=== PATIENT | male | born 1985 | race Caucasian/White ===

== ENCOUNTER 2020-06-13 16:48 | Outpatient (REF) | payer BC, SELFPAY ==
[2020-06-13 17:06] LABS: MANUAL DIFF FLAG NO
[2020-06-13 17:09] LABS: Basophils Absolute Auto 0.1 X10*3/uL (0.0-0.2); Basophils Percent Auto 0.6 % (0-2); Eosinophils Absolute Auto 0.2 X10*3/uL (0.0-0.4); Hematocrit 47.3 % (42-52); Hemoglobin 16.1 g/dl (14.0-18.0); Imm Gran Abs Auto 0.02 X10*3/uL (0.00-0.03); Imm Gran Pct Auto 0.2 % (0.0-0.4); Lymphocytes Absolute Auto 1.6 X10*3/uL (1.2-4.9); Lymphocytes Percent Auto 17.7 % (20-40); Mean Corpuscular Hemoglobin 29.5 pg (27.0-33.0); Mean Corpuscular Volume 86.8 fL (80-98); Mean Platelet Volume 9.2 fL (9.4-12.4); Monocytes Absolute Auto 0.9 X10*3/uL (0.1-1.2); Monocytes Percent Auto 9.7 % (2-11); Neutrophils Absolute Auto 6.2 X10*3/uL (2.0-8.3); Neutrophils Percent Auto 69.8 % (45-73); Platelet Count 341 X10*3/uL (160-400); Red Blood Count 5.45 X10*6/uL (4.60-5.80); Red Cell Distribution Width 11.6 % (11.0-16.0); White Blood Count 8.9 X10*3/uL (4.8-10.8)
[2020-06-13 17:29] LABS: Glucose Urine UA NEG (NEG); Leukocyte Esterase Urine NEG (NEG); Nitrite Urine NEG (NEG); Specific Gravity - Urine >= 1.030 (1.005-1.025); Urine Blood NEG (NEG); Urine Ketones NEG (NEG); Urine Protein NEG (NEG-TRACE)
[2020-06-13 17:30] LABS: Appearance Urine CLEAR; Color Urine YELLOW
[2020-06-13 17:32] LABS: Alanine Aminotransferase 65 U/L (0-40); Albumin Level 4.6 g/dL (3.5-5.0); Alkaline Phosphatase 97 U/L (39-117); Anion Gap 13 (12-20); Aspartate Amino Transferase 35 U/L (5-37); Bilirubin Total 0.5 mg/dL (0.0-1.0); Blood Urea Nitrogen 25 mg/dL (9-16); Calcium 9.7 mg/dL (8.4-10.2); Carbon Dioxide 30 mmol/L (22-29); Chloride 98 mmol/L (96-108); Estimated Glomerular Filt Rate > 60; Glucose Fasting 97 mg/dL (60-99); Potassium 5.1 mmol/l (3.3-5.1); Sodium 136 mmol/L (135-145); Total Protein 7.9 g/dL (6.5-8.0)
[2020-06-13 17:53] LABS: TSH reflex Free T4 1.71 mIU/mL (0.32-4.0)
== END 2020-06-13 16:49 | disposition home or self-care (01) ==
LOC: HO.LAB 16:48
PROVIDERS: PCP Internal Medicine; Visit Provider Internal Medicine
DX: R79.89 Other specified abnormal findings of blood chemistry (principal); I10 Essential (primary) hypertension
CPT/HCPCS: 36415; 80053; 81003; 84443; 85025

== ENCOUNTER 2023-03-03 14:21 | Outpatient (AMB) | payer OTHER, SELFPAY ==
[2023-03-03 14:36] VITALS: BP 134/88; PULSE 86; O2SAT 97; BMI 29.2
--- NOTE | 2023-03-03 14:36 | MHC.PC.OV ---
Vital Signs 03/03/23 14:36 Height 5 ft 11 in Weight 209 lb 8 oz BMI 29.2 BP 134/88 Blood Pressure Location Lt brachial Position Sitting Pulse 86 Pulse Source Pulse Oximeter Pulse Oximetry (%) 97 Oxygen Delivery Method Room Air Intake Visit Reasons: med follow up Direct Mail Marketer Required: No Accompanied by: Self / Same As Patient Allergies No Known Allergies Allergy (Verified 03/03/23 15:06) Medication List - Last Reconciled 03/03/23 by Karthik Trejo MD amlodipine 5 mg PO DAILY 90 days fluoxetine 60 mg (3 x 20 mg) PO DAILY 90 days methylphenidate HCl 50 mg PO DAILY 30 days methylphenidate HCl ER (Concerta) 54 mg PO QAM 30 days Tobacco use date assessed: 03/03/23 Dental Screening Dental Screen Date: 03/03/23 Did you have a dental visit in the last 12 months?: Yes Did you have a dental problem in the last 6 months where you did not have access to dental care?: No Was dental information given to patient?: Patient has dentist HPI med follow up HPI Details Patient comes in today for his follow up visit States that he currently feels okay although he has noticed on and off shaking of his hands often for the past 6 months or so Notes that the shaking in both of his hands seem worse and more pronounced towards the end of the day after work Has not noticed any shaking in the morning He denies any weakness or pain in his upper extremities lately He denies any headaches or dizziness Denies any chest pains, no shortness of breath No nausea / vomiting, no abdominal pain No change in bowel habits noted He has lost a lot a weight since his last visit here about a year ago States that he eats well and he does not work out or exercise regularly and thinks that his losing weight may be due to him staying busy at work although he has been trying to change his diet and eating habits lately and trying to eat healthier [facility] Medical History Overweight (BMI 25.0-29.9) Elevated LFTs Obesity (BMI 30-39.9) Mild obstructive sleep apnea Depression Attention deficit disorder (ADD) Benign essential hypertension Surgical History No significant past surgical history Family History Father Diabetes mellitus Hypertension Social History Housing: House Alcohol intake: current Alcohol intake frequency: a few times a week Alcohol type: beer Patient Tobacco Use Status: Never used Tobacco Second Hand Smoke Exposure: No service: No Current occupational status: employed Cognitive needs: No Hearing needs: No Vision needs: No Questionnaire PHQ-9 Over the last 2 weeks, how often have you been bothered by any of the following problems? 1. Little interest or pleasure in doing things: not at all 2. Feeling down, depressed, or hopeless: not at all 3. Trouble falling or staying asleep, or sleeping too much: not at all 4. Feeling tired or having little energy: not at all 5. Poor appetite or overeating: not at all 6. Feeling bad about yourself - or that you are a failure or have let yourself or your family down: not at all 7. Trouble concentrating on things, such as reading the newspaper or watching television: not at all 8. Moving or speaking so slowly that other people could have noticed. Or the opposite - being so fidgety or restless that you have been moving around a lot more than usual: not at all 9. Thoughts that you would be better off or of hurting yourself in some way: not at all Total score: 0 Depression Screening Interpretation: Negative Depression Screening Done: Yes 13035 - PHQ-9 Billing: Yes Source: Developed by Drs. David Eid, Angelique Albert, Ham Myles and colleagues, with an educational wagner from [employer]. Thrive Questionnaire Date Thrive assessed: 03/03/23 I am a: Patient What is your living situation today?: I have a steady place to live Within the past 12 months, did the food you bought not last and you didn't have the money to get more?: Never true Within the past 12 months, did you worry whether your food would run out before you got money to buy more?: Never true Do you have trouble paying for medicines?: No Do you have trouble getting transportation to medical appointments?: No Do you have trouble paying your heating and electricity bill?: No Do you have trouble taking care of your child, family member or friend?: No Do you have trouble with day-to-day activities such as bathing, preparing meals, shopping, managing finances, etc.?: No Are you currently unemployed and looking for a job?: No Are you interested in more education?: No Please select the resources that you would like help with: None Currently or been in a relationship where the following occur: no concerns reported AUDIT C Alcohol Use Questionnaire (AUDIT-C) 1. How often do you have a drink containing alcohol?: 2-3 times a week 2. How many drinks containing alcohol do you have on a typical day when you are drinking?: 1 or 2 3. How often do you have six or more drinks on one occasion?: Never Total Score: 3 Score Reviewed/Action Taken: Yes MICHEL-7 AMB Questionnaire MICHEL-7 Date MICHEL - 7 assessed: 03/03/23 Feeling nervous, anxious, or on edge: 0 = Not at all Not being able to stop or control worryin = Not at all Worrying too much about different things: 0 = Not at all Trouble relaxin = Not at all Being so restless that it is hard to sit still: 0 = Not at all Becoming easily annoyed or irritable: 0 = Not at all Feeling afraid as if something awful might happen: 0 = Not at all Total MICHEL-7 score (0-4 normal; 5-9 mild; 10-14 moderate; 15-21 severe): 0 Source: Developed by Drs. David Eid, Angelique Albert, Ham Myles and colleagues, with an educational wagner from [employer]. Review of Systems Const Denies chills, Denies fatigue, Denies fever(s) and Denies headache(s) ENT Denies dysphagia, Denies dizziness, Denies otalgia, Denies headache(s), Denies neck pain, Denies odynophagia and Denies sore throat Card Denies chest pain, Denies palpitations and Denies dyspnea Resp Denies cough and Denies dyspnea GI Denies abdominal pain, Denies constipation, Denies dysphagia, Denies heartburn, Denies diarrhea, Denies nausea, Denies odynophagia and Denies vomiting Denies dysuria and Denies nocturia Musc Denies back pain, Denies arthralgias, Denies neck pain and Denies stiffness Skin/Breast Denies rash Neuro Denies dizziness, Denies headache(s) and Reports tremor(s) (in both hands lately - see HPI) Endo Denies fatigue and Denies palpitations Physical exam (Primary Care) Vital Signs: Last Vital Signs Pulse 86 03/03/23 14:36 BP 134/88 03/03/23 14:36 Pulse Ox 97 03/03/23 14:36 Oxygen Delivery Method Room Air 03/03/23 14:36 BMI result Body Mass Index 29.2 Tobacco/Smoking Status: Tobacco use Status Tobacco use date assessed 03/03/23 03/03/23 14:42 Patient Tobacco Use Status Never used Tobacco 03/03/23 14:42 PHQ-9: PHQ-9 Score PHQ-9: Total score 0 03/04/23 05:50 Depression Screening Interpretation: Negative Thrive Assessment: Date of Thrive Assessment Date Thrive assessed 03/03/23 03/03/23 14:42 Currently or been in a relationship where the following occur: no concerns reported Const General: no acute distress and alert Orientation/consciousness: patient oriented x3 HENMT Ears: TM's normal bilaterally and EAC's normal Throat: Yes posterior oropharynx normal and Yes tonsils normal (no TP congestion) Neck Neck: Yes no lymphadenopathy and Yes supple Resp Auscultation: clear to auscultation bilaterally, no rales and no wheezes Cardio Rate: regular rate Rhythm: regular rhythm Heart sounds: no murmurs GI Palpation (GI): Soft to palpation, nontender and No hepatosplenomegaly present Skin General skin exam: no rashes or lesions noted Neuro Other: (+) slight tremor noted in both hands General: patient oriented x3 Gait exam (Neuro): Normal gait present Extrem General: Yes no clubbing, cyanosis or edema Assessment and Plan Assessment & Plan (1) Benign essential hypertension: Code(s): I10 - Essential (primary) hypertension Plan: Reinforced low sodium diet - goal is systolic BP of 120 mm or less Continue Amlodipine 5 mg QD Patient is reminded to continue monitoring his blood pressure regularly (2) Tremor of both hands: Code(s): R25.1 - Tremor, unspecified Plan: Will send him for some labs BEENA for further evaluation Advised that if his labs come back normal and he continues to experience recurrent tremors of his hands, will consider referring him to neurology for further evaluation and management (3) Attention deficit disorder (ADD): Code(s): F98.8 - Other specified behavioral and emotional disorders with onset usually occurring in childhood and adolescence Qualifiers: Hyperactivity presence: unspecified Qualified Code(s): F98.8 - Other specified behavioral and emotional disorders with onset usually occurring in childhood and adolescence Plan: Has been on Methylphenidate 50 mg QD for years but he was switched over to Concerta 54 mg QD as an alternative last year when his original Rx was [id number] States that he has been doing well on Concerta so far without any issues He is reminded that he can skip taking his ADD medication on the weekend when he does not have to go to work (4) Depression: Code(s): F32.9 - Major depressive disorder, single episode, unspecified Qualifiers: Depression Type: unspecified Qualified Code(s): F32.9 - Major depressive disorder, single episode, unspecified Plan: Continue Fluoxetine 60 mg QD (5) Overweight (BMI 25.0-29.9): Code(s): E66.3 - Overweight Plan: Reinforced diet/exercise as tolerated/lose weight Plan Follow up in 4 months Orders: Orders TSH reflex Free T4 03/03/23 E78.00 - Pure hypercholesterolemia, unspecified Vitamin D 25-OH Total 03/03/23 E55.9 - Vitamin D deficiency, unspecified Complete Blood Count Auto Diff 03/03/23 I10 - Essential (primary) hypertension Comprehensive [place]. Panel Fast 03/03/23 E78.00 - Pure hypercholesterolemia, unspecified Lipid Panel 03/03/23 E78.00 - Pure hypercholesterolemia, unspecified Magnesium 03/03/23 E83.42 - Hypomagnesemia UA CC w/rflx Micro + Cult 03/03/23 R30.0 - Dysuria Vitamin B12 and Folate 03/03/23 E53.8 - Deficiency of other specified B group vitamins Coding Level of Care Code Est Pt Level 4 (90468) Diagnoses Benign essential hypertension I10 Tremor of both hands R25.1 Attention deficit disorder, unspecified hyperactivity presence F98.8 Hyperactivity presence: unspecified Depression, unspecified depression type F32.9 Depression Type: unspecified Overweight (BMI 25.0-29.9) E66.3
== END 2023-03-03 15:13 | disposition home or self-care (01) ==
PROVIDERS: PCP Internal Medicine; Visit Provider Internal Medicine
DX: I10 Essential (primary) hypertension (principal); R25.1 Tremor, unspecified; F98.8 Other specified behavioral and emotional disorders with onset usually occurring in childhood and adolescence; F33.9 Major depressive disorder, recurrent, unspecified
CPT/HCPCS: 99214

== ENCOUNTER 2023-06-07 07:21 | Outpatient (REF) | payer OTHER, SELFPAY ==
[2023-06-07 07:34] LABS: MANUAL DIFF FLAG NO
[2023-06-07 07:52] LABS: Basophils Absolute Auto 0.1 X10*3/uL (0.0-0.2); Basophils Percent Auto 0.9 % (0-2); Eosinophils Absolute Auto 0.2 X10*3/uL (0.0-0.4); Eosinophils Percent Auto 3.8 % (0-4); Hematocrit 44.1 % (42.0-52.0); Hemoglobin 15.2 g/dl (14.0-18.0); Imm Gran Abs Auto 0.02 X10*3/uL (0.00-0.03); Imm Gran Pct Auto 0.3 % (0.0-0.4); Lymphocytes Absolute Auto 1.1 X10*3/uL (1.2-4.9); Lymphocytes Percent Auto 18.3 % (20-40); Mean Corpuscular HGB Conc 34.5 g/dl (31.0-36.0); Mean Corpuscular Hemoglobin 29.5 pg (27.0-33.0); Mean Corpuscular Volume 85.6 fL (80.0-98.0); Mean Platelet Volume 8.9 fL (9.4-12.4); Monocytes Absolute Auto 0.7 X10*3/uL (0.1-1.2); Monocytes Percent Auto 11.9 % (2-11); Neutrophils Absolute Auto 3.8 x10*3/uL (2.0-8.3); Neutrophils Percent Auto 64.8 % (45-73); Platelet Count 324 X10*3/uL (160-400); Red Blood Count 5.15 X10*6/uL (4.60-5.80); Red Cell Distribution Width 11.6 % (11.0-16.0); White Blood Count 5.9 X10*3/uL (4.8-10.8)
[2023-06-07 08:35] LABS: Alanine Aminotransferase 43 U/L (0-40); Albumin Level 4.4 g/dL (3.5-5.0); Alkaline Phosphatase 101 U/L (39-117); Anion Gap 11 (12-20); Aspartate Amino Transferase 22 U/L (5-37); Bilirubin Total 0.6 mg/dL (0.0-1.0); Blood Urea Nitrogen 17 mg/dL (9-16); Calcium 9.7 mg/dL (8.4-10.2); Carbon Dioxide 29 mmol/L (22-29); Chloride 103 mmol/L (96-108); Cholesterol 193 mg/dL (<200); Estimated Glomerular Filt Rate > 60; Glucose Fasting 93 mg/dL (60-99); HDL Cholesterol 45 mg/dL (>40); LDL Cholesterol Calculated 118 mg/dL (<100); Magnesium 2.1 mg/dL (1.6-2.6); Potassium 4.2 mmol/L (3.3-5.1); Sodium 139 mmol/L (135-145); Total Protein 7.9 g/dL (6.5-8.0); Triglycerides 153 mg/dL (<150)
[2023-06-07 08:53] LABS: TSH reflex Free T4 1.15 uIU/mL (0.32-4.0); Vitamin D 25-OH Total 22.1 ng/mL (>30)
[2023-06-07 09:04] LABS: Appearance Urine Clear; Color Urine Yellow; Glucose Urine UA Negative (Negative); Leukocyte Esterase Urine Negative (Negative); Nitrite Urine Negative (Negative); Specific Gravity - Urine 1.025 (1.005-1.025); Urine Blood Negative (Negative); Urine Ketones Negative (Negative); Urine Protein Negative (Neg-Trace)
[2023-06-07 09:06] LABS: Folate 11.2 ng/mL (> or = 4.0); Vitamin B12 524 pg/mL (200-900)
== END 2023-06-07 07:22 | disposition home or self-care (01) ==
LOC: HO.LAB 07:21
PROVIDERS: PCP Internal Medicine; Visit Provider Internal Medicine
DX: R30.0 Dysuria (principal); E78.00 Pure hypercholesterolemia, unspecified; I10 Essential (primary) hypertension; E53.8 Deficiency of other specified B group vitamins; E55.9 Vitamin D deficiency, unspecified
CPT/HCPCS: 36415; 80053; 80061; 81003; 82306; 82607; 82746; 83735; 84443; 85025

== ENCOUNTER 2023-07-04 15:20 | Outpatient (AMB) | payer OTHER, SELFPAY ==
--- NOTE | 2023-07-04 15:20 | A.OFFPC_ITS ---
Intake Visit Reasons: [facility] [phone] Shoeshiner Required: No Accompanied by: Self / Same As Patient Allergies No Known Allergies Allergy (Verified 07/04/23 15:48) Medication List - Last Reconciled 07/04/23 by Karthik Trejo MD amlodipine 5 mg PO DAILY 90 days fluoxetine 60 mg (3 x 20 mg) PO DAILY 90 days methylphenidate HCl 50 mg PO DAILY 30 days methylphenidate HCl ER (Concerta) 54 mg PO QAM 30 days Tobacco use date assessed: 07/04/23 Dental Screening Dental Screen Date: 07/04/23 Did you have a dental visit in the last 12 months?: Yes Did you have a dental problem in the last 6 months where you did not have access to dental care?: No Was dental information given to patient?: Patient has dentist HPI [facility] [phone] HPI Details Patient's follow up visit / consultation today is done over video conference (iPhone/iPad/[employer]) - this is a TELEHEALTH visit Patient's current medications have been reviewed and verified with patient and/or caregiver/proxy and have been updated accordingly in the medication list Patient states that he has been experiencing some pain and weakness over the lateral side of his left elbow for the past 3 to 4 weeks Feels that his symptoms have been getting worse lately as his elbow has been feeling weaker now and notes increasing pain over the lateral side of his elbow with activity and movement involving his left elbow and arm States that he is right-handed and does not recall any recent injury or trauma to his left elbow States that he feels okay otherwise He denies any headaches or dizziness Denies any chest pains, no SOB No nausea/vomiting, no abdominal pain No change in bowel habits noted Had his follow up labs done a few weeks ago - to discuss his results [facility] Medical History (Updated 07/06/23 @ 13:30 by Karthik Trejo MD) Vitamin D deficiency Overweight (BMI 25.0-29.9) Elevated LFTs Obesity (BMI 30-39.9) Mild obstructive sleep apnea Depression Attention deficit disorder (ADD) Benign essential hypertension Surgical History No significant past surgical history Family History Father Diabetes mellitus Hypertension Social History Housing: House Alcohol intake: current Alcohol intake frequency: a few times a week Alcohol type: beer Patient Tobacco Use Status: Never used Tobacco e-Cigarette/Vaping Use: Never Used Second Hand Smoke Exposure: No service: No Current occupational status: employed Cognitive needs: No Hearing needs: No Vision needs: No Questionnaire PHQ-9 Over the last 2 weeks, how often have you been bothered by any of the following problems? 1. Little interest or pleasure in doing things: not at all 2. Feeling down, depressed, or hopeless: not at all 3. Trouble falling or staying asleep, or sleeping too much: not at all 4. Feeling tired or having little energy: not at all 5. Poor appetite or overeating: not at all 6. Feeling bad about yourself - or that you are a failure or have let yourself or your family down: not at all 7. Trouble concentrating on things, such as reading the newspaper or watching television: not at all 8. Moving or speaking so slowly that other people could have noticed. Or the opposite - being so fidgety or restless that you have been moving around a lot more than usual: not at all 9. Thoughts that you would be better off or of hurting yourself in some way: not at all Total score: 0 Depression Screening Interpretation: Negative Depression Screening Done: Yes 80205 - PHQ-9 Billing: Yes Source: Developed by Drs. David Eid, Angelique Albert, Ham Myles and colleagues, with an educational wagner from [employer] Thrive Questionnaire Date Thrive assessed: 07/04/23 I am a: Patient What is your living situation today?: I have a steady place to live Within the past 12 months, did the food you bought not last and you didn't have the money to get more?: Never true Within the past 12 months, did you worry whether your food would run out before you got money to buy more?: Never true Do you have trouble paying for medicines?: No Do you have trouble getting transportation to medical appointments?: No Do you have trouble paying your heating and electricity bill?: No Do you have trouble taking care of your child, family member or friend?: No Do you have trouble with day-to-day activities such as bathing, preparing meals, shopping, managing finances, etc.?: No Are you currently unemployed and looking for a job?: No Are you interested in more education?: No Please select the resources that you would like help with: None Currently or been in a relationship where the following occur: no concerns reported THRIVE Score: 0 AUDIT C Alcohol Use Questionnaire (AUDIT-C) 1. How often do you have a drink containing alcohol?: 2-3 times a week 2. How many drinks containing alcohol do you have on a typical day when you are drinking?: 1 or 2 3. How often do you have six or more drinks on one occasion?: Never Total Score: 3 Score Reviewed/Action Taken: Yes MICHEL-7 AMB Questionnaire MICHEL-7 Date MICHEL - 7 assessed: 07/04/23 Feeling nervous, anxious, or on edge: 0 = Not at all Not being able to stop or control worryin = Not at all Worrying too much about different things: 0 = Not at all Trouble relaxin = Not at all Being so restless that it is hard to sit still: 0 = Not at all Becoming easily annoyed or irritable: 0 = Not at all Feeling afraid as if something awful might happen: 0 = Not at all Total MICHEL-7 score (0-4 normal; 5-9 mild; 10-14 moderate; 15-21 severe): 0 Source: Developed by Drs. David Eid, Angelique Albert, Ham Myles and colleagues, with an educational wagner from [employer] Review of Systems Const Denies fatigue, Denies fever(s) and Denies headache(s) ENT Denies dysphagia, Denies dizziness, Denies otalgia, Denies headache(s), Denies n ziyad pain, Denies odynophagia and Denies sore throat Card Denies chest pain, Denies palpitations and Denies dyspnea Resp Denies cough and Denies dyspnea GI Denies abdominal pain, Denies constipation, Denies dysphagia, Denies heartburn, Denies diarrhea, Denies nausea, Denies odynophagia and Denies vomiting Denies dysuria, Denies nocturia and Denies urinary frequency Musc Denies back pain, Reports arthralgias (over the lateral side of the left elbow - see HPI), Denies joint swelling, Reports muscle weakness (over the left elbow area), Denies neck pain and Denies stiffness Skin/Breast Denies rash Neuro Denies dizziness, Denies headache(s) and Reports tremor(s) (in both hands, on and off) Endo Denies fatigue and Denies palpitations Physical exam (Primary Care) Vital Signs: Physical examination is not performed as visit / consultation today is done over videoconference - Telehealth visit All physical findings indicated here, if present, are as per patient's and / or caregivers / proxy's report and visual inspection over videoconference, if appropriate or applicable Tobacco/Smoking Status: Tobacco use Status Tobacco use date assessed 07/04/23 07/04/23 15:22 Patient Tobacco Use Status Never used Tobacco 07/04/23 15:22 e-Cigarette/Vaping Use Never Used 07/04/23 15:22 PHQ-9: PHQ-9 Score PHQ-9: Total score 0 07/04/23 15:50 Depression Screening Interpretation: Negative Thrive Assessment: Date of Thrive Assessment Date Thrive assessed 07/04/23 07/04/23 15:22 Currently or been in a relationship where the following occur: no concerns reported Telehealth Telehealth Location of provider rendering services: practice address Location of patient: address on file Patient Identification confirmed using: Name, : Yes Telehealth method: video (Iphone/Gigalocal) Patient verbally consented to treatment: Yes Patient verbally consented to billing insurance company: Yes Patient informed of any privacy concerns related to visit: Yes Minutes spent on Phone/Video with Pt.: 23 Results Reviewed Results Reviewed: Laboratory Tests 06/07/23 06/07/23 06/07/23 07:32 07:32 07:32 WBC Hgb Hct Plt Count Sodium Potassium Creatinine Estimated GFR Fasting Glucose Calcium AST ALT Triglycerides Cholesterol LDL Cholesterol, Calc HDL Cholesterol Vitamin B12 25-OH Vitamin D Total TSH Ur Specific [place] 1.025 Urine Protein Negative Urine Glucose (UA) Negative Urine Blood Negative Urine Nitrite Negative Ur Leukocyte Esterase Negative 06/07/23 06/07/23 06/07/23 07:33 07:33 07:33 WBC 5.9 Hgb 15.2 Hct 44.1 Plt Count 324 Sodium 139 Potassium 4.2 Creatinine 1.05 Estimated GFR > 60 Fasting Glucose 93 Calcium 9.7 AST 22 ALT 43 H Triglycerides 153 H Cholesterol 193 LDL Cholesterol, Calc 118 H HDL Cholesterol 45 Vitamin B12 524 25-OH Vitamin D Total 22.1 L TSH 1.15 Ur Specific [place] Urine Protein Urine Glucose (UA) Urine Blood Urine Nitrite Ur Leukocyte Esterase Assessment and Plan Assessment & Plan (1) Left elbow pain: Code(s): M25.522 - Pain in left elbow Plan: Advised that the location of his elbow pain and symptoms are suggestive of lateral epiconndylitis Will send him for x-rays of the left elbow for further evaluation Discussed that if his x-rays show no significant abnormalities, will most likely recommend a trial of physical therapy and/or referral to orthopedics - will wait for his to get his x-rays done first (2) Benign essential hypertension: Code(s): I10 - Essential (primary) hypertension Plan: Reinforced low sodium diet - goal is systolic BP of 120 mm or less Continue Amlodipine 5 mg QD Patient is reminded to continue monitoring his blood pressure regularly (3) Tremor of both hands: Code(s): R25.1 - Tremor, unspecified Plan: Results of his labs done a few weeks ago reviewed and discussed with patient - advised that aside from a low vitamin D level and borderline hign serum triglyceride level, his labs are mostly okay As he continues to experience recurrent tremors of his hands, will refer him to neurology for further evaluation and management (4) Vitamin D deficiency: Code(s): E55.9 - Vitamin D deficiency, unspecified Plan: Advised that his Vitamin D level was low on his recent labs Will start him on Vitamin D3 2000 units QD (5) Attention deficit disorder (ADD): Code(s): F98.8 - Other specified behavioral and emotional disorders with onset usually occurring in childhood and adolescence Qualifiers: Hyperactivity presence: unspecified Qualified Code(s): F98.8 - Other specified behavioral and emotional disorders with onset usually occurring in childhood and adolescence Plan: Has been on Methylphenidate 50 mg QD for years but he was switched over to Concerta 54 mg QD as an alternative last year when his original Rx was [id number] States that he has been doing well on Concerta so far without any issues He is reminded that he can skip taking his ADD medication on the weekend when he does not have to go to work (6) Depression: Code(s): F32.9 - Major depressive disorder, single episode, unspecified Qualifiers: Depression Type: unspecified Qualified Code(s): F32.9 - Major depressive disorder, single episode, unspecified Plan: Continue Fluoxetine 60 mg QD (7) Overweight (BMI 25.0-29.9): Code(s): E66.3 - Overweight Plan: Reinforced diet/exercise as tolerated/lose weight Plan Follow up in 4 months Orders: Orders XR elbow LT min 3V 07/05/23 M25.522 - Pain in left elbow Referrals Neurology Referral R25.1 - Tremor, unspecified Medications: New cholecalciferol (vitamin D3) 50 mcg PO DAILY 90 days 90 caps 3RF E55.9 - Vitamin D deficiency, unspecified Coding Level of Care Code Tele Est Pt Level 4 (83764) Diagnoses Left elbow pain M25.522 Benign essential hypertension I10 Tremor of both hands R25.1 Vitamin D deficiency E55.9 Attention deficit disorder, unspecified hyperactivity presence F98.8 Hyperactivity presence: unspecified Depression, unspecified depression type F32.9 Depression Type: unspecified Overweight (BMI 25.0-29.9) E66.3
== END 2023-07-04 16:23 | disposition home or self-care (01) ==
LOC: HO.HMGH 15:20
PROVIDERS: PCP Internal Medicine; Visit Provider Internal Medicine
DX: M25.522 Pain in left elbow (principal); I10 Essential (primary) hypertension; R25.1 Tremor, unspecified; E55.9 Vitamin D deficiency, unspecified; F98.8 Other specified behavioral and emotional disorders with onset usually occurring in childhood and adolescence; F32.9 Major depressive disorder, single episode, unspecified; E66.3 Overweight
CPT/HCPCS: 99214

== ENCOUNTER 2023-07-05 07:51 | Outpatient (REF) | payer OTHER, SELFPAY ==
--- NOTE | ~2023-07-05 | XR_ITS ---
EXAMINATION: XR ELBOW, LEFT CLINICAL INFORMATION: Left posterior elbow pain between radial head and ulna, no injury. COMPARISON: None available. TECHNIQUE: AP, lateral, and oblique views of the left elbow. FINDINGS: Moderate spur along the dorsal aspect of the olecranon. Ill-defined sclerotic focus in the proximal ulna, possibly representing a bone island. Alignment preserved. No displaced fracture. XR/XR elbow LT min 3V IMPRESSION: 1. Moderate spur along the dorsal aspect of the olecranon. 2. Ill-defined sclerotic focus in the proximal ulna, possibly representing a bone island. 3. Recommend follow-up imaging in 10-14 days if fracture is suspected.
== END 2023-07-05 07:52 | disposition home or self-care (01) ==
LOC: HO.XRAY 07:51
PROVIDERS: PCP Internal Medicine; Visit Provider Internal Medicine
DX: M25.522 Pain in left elbow (principal)
CPT/HCPCS: 73080

== ENCOUNTER 2023-08-04 15:07 | Outpatient (AMB) | payer OTHER, SELFPAY ==
--- NOTE | 2023-08-04 15:24 | MHC.OFFVIS ---
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 Patient reports bilateral intermittent elbow pain with the right being the worse. States right shoulder pain for a couple of years as well as numbness and tingling. His left elbow pain began in the beginning of April. States his pain radiates into his shoulder. Denies any recent injury however he mentions a baseball injury to his right elbow at age 20. No previous tx. 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 He reports he has been experiencing right elbow pain due to a baseball injury at the age of 20 and left elbow pain since the beginning of April. He currently states he has intermittent pain in his bilateral elbow with the right elbow being the worse. His pain radiates into the shoulder. He also c/o numbness and tingling in her right shoulder for about 2 years. He denies any other injury and has not had any treatment in the past. [facility] Medical History (Updated 08/06/23 @ 16:18 by Gianna Murray PA-C) Vitamin D deficiency Overweight (BMI 25.0-29.9) Elevated LFTs Obesity (BMI 30-39.9) Mild obstructive sleep apnea Depression Attention deficit disorder (ADD) Benign essential hypertension Surgical History No significant past surgical history Family History Father Diabetes mellitus Hypertension Social History (Updated 08/04/23 @ 15:25 by VANESA Ho) Housing: House Alcohol intake: current Alcohol intake frequency: a few times a week Alcohol type: beer Patient Tobacco Use Status: Never used Tobacco e-Cigarette/Vaping Use: Never Used Second Hand Smoke Exposure: No service: No Current occupational status: employed 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, 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 Cognitive needs: No Hearing needs: No Vision needs: No Review of Systems Const All systems reviewed & are unremarkable except as noted in HPI and below Physical Exam Vital Signs: BMI result Body Mass Index 29.1 Const General: cooperative, healthy appearing, comfortable, no acute distress, well developed and alert Orientation/consciousness: patient oriented x3 HEENT Head: Yes normal to inspection, Yes normocephalic and Yes atraumatic Eyes General: appearance normal, both eyes and all related structures Resp Effort & Inspection: normal respiratory effort and able to speak in complete sentences Cardio Rate: regular rate Peripheral pulses: Peripheral pulses 2+ throughout GI Palpation (GI): Soft to palpation Skin Lesions: no lesions Rashes: no rashes Neuro General: patient oriented x3 Extrem Other: Bilateral elbow: Skin intact. No erythema or swelling. ROM full without pain. Tenderness over the lateral epicondyle and pain with resisted wrist extension. NVI. Office Procedures Joint Injection/Drain Joint Injection/Drain Primary Site: right tennis elbow Prep: site was prepped using aseptic technique, ethochloride spray was applied and injection warnings given Injected: 40 mg of, with 1 mL of, 1% plain lidocaine and decadron Procedure: The patient tolerated the procedure well and there was some relief with the local anesthesia Coding 36285 - Epicondyle Procedure code (CPT) selection complete Assessment & Plan Assessment & Plan (1) Lateral epicondylitis of both elbows: Code(s): M77.11 - Lateral epicondylitis, right elbow; M77.12 - Lateral epicondylitis, left elbow Plan We discussed options today which include steroid injection. They did consent to move forward with the right elbow injection, which was tolerated well. I recommended rest, ice and elevation and OTC anti-inflammatories PRN for discomfort. If symptoms persist or worsens over the next 6-8 weeks, patient will contact the office, otherwise follow-up as needed. Orders: Orders NE nerve conduction velocity 08/04/23 R20.0 - Anesthesia of skin, R20.2 - Paresthesia of skin NE electromyogram (EMG) 08/04/23 R20.0 - Anesthesia of skin, R20.2 - Paresthesia of skin Patient Instructions: Scribed for Gianna Murray PA-C, by Stanislav Tuttle medical billing coordinator, on 08/04/2023 at 3:15 PM EST. IGianna PA-C, have personally reviewed and agree with the information entered by the scribe. Coding Level of Care Code New Pt Level 3 (58057) Diagnoses Lateral epicondylitis of both elbows M77.11; M77.12 CPT Codes Coding - Joint 2: 99464 - Epicondyle ([id number])
[2023-08-04 15:31] VITALS: BMI 29.1
== END 2023-08-04 16:44 | disposition home or self-care (01) ==
PROVIDERS: PCP Internal Medicine; Visit Provider Physician Assistant
DX: M77.11 Lateral epicondylitis, right elbow (principal); M77.12 Lateral epicondylitis, left elbow
CPT/HCPCS: 20550; 99203

== ENCOUNTER → 2023-08-04 15:07 | Outpatient (BNVA) | payer OTHER, SELFPAY | PROVIDERS: PCP Internal Medicine; Visit Provider Physician Assistant | DX: M77.11 Lateral epicondylitis, right elbow (principal); M77.12 Lateral epicondylitis, left elbow | CPT/HCPCS: 20550; J1100 ==

== ENCOUNTER 2023-08-20 15:18 | Outpatient (REF) | payer OTHER, SELFPAY ==
--- NOTE | 2023-08-20 15:22 | EMG_ITS ---
Chief complaint: Bilateral elbow pain, hand tingling Reason for referral: Evaluate for Carpal Tunnel Syndrome versus ulnar neuropathy Referred by: Gianna BARRON Procedure done: Bilateral upper extremities NCS/EMG Precautions and/or limitations: None The limb temperature was monitored continuously and remained between 32-36 degrees C during the performance of the NCS. Nerve Conduction Studies Anti Sensory Summary Table ?Stim Site NR Onset (ms) Norm Onset (ms) Peak (ms) Norm Peak (ms) O-P Amp (?V) Norm O-P Amp Site1 Site2 Delta-0 (ms) Dist (cm) Da (m/s) Norm Da (m/s) Left Median Anti Sensory (2nd Digit) Wrist ? 2.7 3.3 <3.6 24.0 >10 Wrist 2nd Digit 2.7 14.0 52 Right Median Anti Sensory (2nd Digit) Wrist ? 2.6 3.1 <3.6 17.4 >10 Wrist 2nd Digit 2.6 14.0 54 Right Radial Anti Sensory (Thumb) Forearm ? 1.7 2.2 <3.1 11.1 Forearm Thumb 1.7 0.0 Left Ulnar Anti Sensory (5th Digit) Wrist ? 2.4 3.1 <3.7 32.0 >15.0 Wrist 5th Digit 2.4 14.0 58 Right Ulnar Anti Sensory (5th Digit) Wrist ? 2.5 3.0 <3.7 17.6 >15.0 Wrist 5th Digit 2.5 14.0 56 Motor Summary Table ?Stim Site NR Onset (ms) Norm Onset (ms) O-P Amp (mV) Norm O-P Amp iAmp (mV) Amp (1st) (%) Site1 Site2 Delta-0 (ms) Dist (cm) Da (m/s) Norm Da (m/s) Left Median Motor (Abd Poll Brev) Wrist ? 3.5 <3.9 13.2 >4.5 14.7 100.0 Elbow Wrist 4.9 25.0 51 >45 Elbow ? 8.4 13.0 14.8 98.5 Right Median Motor (Abd Poll Brev) Wrist ? 3.2 <3.9 11.6 >4.5 13.2 100.0 Elbow Wrist 4.4 24.0 55 >45 Elbow ? 7.6 11.0 12.7 94.8 Left Ulnar Motor (Abd Dig Minimi) Wrist ? 3.0 <3.0 7.7 >5 9.7 100.0 B Elbow Wrist 3.5 23.0 66 >45 B Elbow ? 6.5 7.2 9.4 93.5 A Elbow B Elbow 1.4 10.0 71 >45 A Elbow ? 7.9 7.1 9.3 92.2 Right Ulnar Motor (Abd Dig Minimi) Wrist ? 3.0 <3.0 12.3 >5 15.8 100.0 B Elbow Wrist 3.6 23.0 64 >45 B Elbow ? 6.6 11.4 14.9 92.7 A Elbow B Elbow 1.4 10.0 71 >45 A Elbow ? 8.0 10.6 14.2 86.2 EMG ?Side Muscle Nerve Root Ins Act Fibs Psw Amp Dur Poly Recrt Int Pat Comment Right 1stDorInt Ulnar C8-T1 Nml Nml Nml Nml Nml 0 Nml Complete Right FlexCarRad Median C6-7 Nml Nml Nml Nml Nml 0 Nml Complete Right Biceps Musculocut C5-6 Nml Nml Nml Nml Nml 0 Nml Complete Right Triceps Radial C6-7-8 Nml Nml Nml Nml Nml 0 Nml Complete Right Deltoid Axillary C5-6 Nml Nml Nml Nml Nml 0 Nml Complete Left 1stDorInt Ulnar C8-T1 Nml Nml Nml Nml Nml 0 Nml Complete Left FlexCarRad Median C6-7 Nml Nml Nml Nml Nml 0 Nml Complete Left Biceps Musculocut C5-6 Nml Nml Nml Nml Nml 0 Nml Complete Left Triceps Radial C6-7-8 Nml Nml Nml Nml Nml 0 Nml Complete Left Deltoid Axillary C5-6 Nml Nml Nml Nml Nml 0 Nml Complete FINDINGS: All motor and sensory nerves tested showed normal latencies, amplitudes and conduction velocities. Concentric needle EMG was performed in selected muscles of the bilateral upper extremities. Study did not reveal signs of electric abnormalities as shown in the table below. IMPRESSION: 1. This is a normal study. 2. There is no electrodiagnostic evidence for median neuropathy, ulnar neuropathy, brachial plexopathy, or cervical radiculopathy. Thank you for your kind referral. Agata Red MD, MARICRUZ Board Certified, [place] [employer] and Rehabilitation (ABPMR) Board Certified, [place] Board [employer] Electrodiagnostic Medicine (ABEM) CODIN 63494 x 2 BRENNON
== END 2023-08-20 15:19 | disposition home or self-care (01) ==
LOC: HO.NEURO 15:18
PROVIDERS: PCP Internal Medicine; Visit Provider Physician Assistant
DX: R20.0 Anesthesia of skin (principal); R20.2 Paresthesia of skin
CPT/HCPCS: 95886; 95911

== ENCOUNTER → 2023-08-20 15:22 | Outpatient (BNV) | payer OTHER, SELFPAY | PROVIDERS: PCP Internal Medicine; Visit Provider Physical Medicine & Rehabilitation | DX: M25.521 Pain in right elbow (principal); M25.522 Pain in left elbow; R20.2 Paresthesia of skin | CPT/HCPCS: 95886; 95911 ==

== ENCOUNTER 2023-12-04 09:24 | Outpatient (AMB) | payer OTHER, SELFPAY ==
--- NOTE | 2023-12-04 09:45 | MHC.OFFVIS ---
Vital Signs 12/04/23 09:47 Height 5 ft 11 in Weight 209 lb BMI 29.1 Intake Visit Reasons: Elbow pain getting worse / muscle weakness Intake Note: Vamsi is a 38 year old male who presents today for a follow up of left elbow pain. Patient reports last injection on 08/04/23 provided him with relief for a couple of days. Currently his pain has been getting worse. He has difficulty lifting items making it unable to perform his duties at work. Allergies No Known Allergies Allergy (Verified 12/04/23 09:47) Medication List - Last Reconciled 12/04/23 by Gianna Murray PA-C amlodipine 5 mg PO DAILY 90 days cholecalciferol (vitamin D3) 50 mcg PO DAILY 90 days Concerta ER (methylphenidate HCl) 54 mg PO QAM 30 days NS fluoxetine 60 mg (3 x 20 mg) PO DAILY 90 days methylphenidate HCl CD 50 mg PO DAILY 30 days HPI HPI Elbow pain getting worse / muscle weakness: Details: 38-year-old male who returns to the office today for a follow-up of left elbow pain. He states he has worsening pain as well as muscle weakness in her elbow. He had his last injection on 08/04/23 that provided him relief for about 2 days. He currently states he has worsening pain in his elbow that is aggravated with lifting items and moving his arm back which makes him unable to perform his duties at work. He also reports he has pain in his right shoulder which is limiting his daily activities and perform his job. He does not have a history of diabetes. [facility] Medical History (Updated 12/04/23 @ 10:05 by Gianna Murray PA-C) Vitamin D deficiency Overweight (BMI 25.0-29.9) Elevated LFTs Obesity (BMI 30-39.9) Mild obstructive sleep apnea Depression Attention deficit disorder (ADD) Benign essential hypertension Surgical History No significant past surgical history Family History Father Diabetes mellitus Hypertension Social History Housing: House Alcohol intake: current Alcohol intake frequency: a few times a week Alcohol type: beer Patient Tobacco Use Status: Never used Tobacco e-Cigarette/Vaping Use: Never Used Second Hand Smoke Exposure: No service: No Current occupational status: employed 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 Tenderness over the bicipital groove and along the deltoid region of the shoulder. Forward flexion to 175, external rotation to 90, internal rotation to S1. 5/5 RTC strength. Positive O?Briens. NVI. Office Procedures Joint Injection/Drain Joint Injection/Drain Primary Site: right shoulder Prep: site was prepped using aseptic technique, ethochloride spray was applied and injection warnings given Injected: 80 mg of, DepoMedrol, with 8 mL of, 1% plain lidocaine and in the subcromial space Approach Used: posterolateral Procedure: The patient tolerated the procedure well and there was some relief with the local anesthesia Coding 19734 - Glenohumeral/Tronchanteric Bursa/Intraarticular Procedure code (CPT) selection complete Assessment & Plan Assessment & Plan (1) Biceps tendonitis on right: Code(s): M75.21 - Bicipital tendinitis, right shoulder Category: Medical Plan We discussed options today, which include steroid injection. The patient did consent to move forward with the injection, which was tolerated well. He will also work with physical therapy and if he continues to develop difficulty with daily activities and limitations, he will contact the office to order an MRI arthrogram of the right shoulder. I recommended rest, ice, and elevation and OTC anti-inflammatories as needed for discomfort. If symptoms persist or worsen over the next 6-8 weeks, patient will contact the office, otherwise follow-up as needed. Orders: Orders PT Evaluation and Treatment Today M75.21 - Bicipital tendinitis, right shoulder Patient Instructions: Scribed for Gianna Murray PA-C, by marybeth Mendez scribe, on 12/04/2023 at 9:45 AM EST.? I, Gianna Murray PA-C, have personally reviewed and agree with the information entered by the scribe. Coding Level of Care Code Est Pt Level 3 (14591) Diagnoses Biceps tendonitis on right M75.21 CPT Codes Coding - Joint 7: 76578 - Glenohumeral/Tronchanteric Bursa/Intraarticular ([id number])
[2023-12-04 09:47] VITALS: BMI 29.1
== END 2023-12-04 10:27 | disposition home or self-care (01) ==
PROVIDERS: PCP Internal Medicine; Visit Provider Physician Assistant
DX: M75.21 Bicipital tendinitis, right shoulder (principal)
CPT/HCPCS: 20610; 99213

== ENCOUNTER → 2023-12-04 09:24 | Outpatient (BNVA) | payer OTHER, SELFPAY | PROVIDERS: PCP Internal Medicine; Visit Provider Physician Assistant | DX: M75.21 Bicipital tendinitis, right shoulder (principal) | CPT/HCPCS: 20610; J1010 ==

== ENCOUNTER 2024-05-13 13:15 | Outpatient (AMB) | payer OTHER, SELFPAY ==
[2024-05-13 13:18] VITALS: BP 118/80; PULSE 87; O2SAT 97; BMI 31.1
--- NOTE | 2024-05-13 13:18 | MHC.PC.OV ---
Vital Signs 05/13/24 13:18 Height 5 ft 11 in Weight 223 lb 4 oz BMI 31.1 BP 118/80 Blood Pressure Location Lt brachial Position Sitting Pulse 87 Pulse Source Pulse Oximeter Pulse Oximetry (%) 97 Oxygen Delivery Method Room Air Intake Visit Reasons: medication Parole Or Probation Officer Required: No Accompanied by: Self / Same As Patient Allergies No Known Allergies Allergy (Verified 05/13/24 13:29) Medication List - Last Reconciled 05/13/24 by TATUM Arteaga amlodipine 5 mg PO DAILY 90 days cholecalciferol (vitamin D3) 50 mcg PO DAILY 90 days fluoxetine 60 mg (3 x 20 mg) PO DAILY 90 days methylphenidate HCl CD 50 mg PO DAILY 30 days Tobacco use date assessed: 05/13/24 Dental Screening Dental Screen Date: 05/13/24 Did you have a dental visit in the last 12 months?: Yes Did you have a dental problem in the last 6 months where you did not have access to dental care?: No Was dental information given to patient?: Patient has dentist HPI medication HPI Details The patient is a 39 year old male with significant past medical history of of ADD, benign essential hypertension, obesity and vitamin-D deficiency. The patient reports that he has no concerns today and is doing well. He denies headache, chest pain, shortness of breath, heart palpitation, and dizziness Reports that he does not need any refill today but he will in 2 weeks At that time he will contact the office. [facility] Medical History Vitamin D deficiency Overweight (BMI 25.0-29.9) Elevated LFTs Obesity (BMI 30-39.9) Mild obstructive sleep apnea Depression Attention deficit disorder (ADD) Benign essential hypertension Surgical History No significant past surgical history Family History Father Diabetes mellitus Hypertension Social History Housing: House Alcohol intake: current Alcohol intake frequency: a few times a week Alcohol type: beer Patient Tobacco Use Status: Never used Tobacco e-Cigarette/Vaping Use: Never Used Second Hand Smoke Exposure: No service: No Current occupational status: employed 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 1. Little interest or pleasure in doing things: not at all 2. Feeling down, depressed, or hopeless: not at all 3. Trouble falling or staying asleep, or sleeping too much: not at all 4. Feeling tired or having little energy: not at all 5. Poor appetite or overeating: not at all 6. Feeling bad about yourself - or that you are a failure or have let yourself or your family down: not at all 7. Trouble concentrating on things, such as reading the newspaper or watching television: not at all 8. Moving or speaking so slowly that other people could have noticed. Or the opposite - being so fidgety or restless that you have been moving around a lot more than usual: not at all 9. Thoughts that you would be better off or of hurting yourself in some way: not at all Total score: 0 Depression Screening Interpretation: Negative Depression Screening Done: Yes 86600 - PHQ-9 Billing: Yes Source: Developed by Drs. David Eid, Angelique Albert, Ham Myles and colleagues, with an educational wagner from [employer]. Thrive Questionnaire Date Thrive assessed: 05/13/24 I am a: Patient What is your living situation today?: I have a steady place to live Within the past 12 months, did the food you bought not last and you didn't have the money to get more?: Never true Within the past 12 months, did you worry whether your food would run out before you got money to buy more?: Never true Do you have trouble paying for medicines?: No Do you have trouble getting transportation to medical appointments?: No Do you have trouble paying your heating and electricity bill?: No Do you have trouble taking care of your child, family member or friend?: No Do you have trouble with day-to-day activities such as bathing, preparing meals, shopping, managing finances, etc.?: No Are you currently unemployed and looking for a job?: No Are you interested in more education?: No Please select the resources that you would like help with: None Currently or been in a relationship where the following occur: No concerns reported THRIVE Score: 0 AUDIT C Alcohol Use Questionnaire (AUDIT-C) 1. How often do you have a drink containing alcohol?: Monthly or less 2. How many drinks containing alcohol do you have on a typical day when you are drinking?: 3 or 4 3. How often do you have six or more drinks on one occasion?: Weekly Total Score: 5 MICHEL-7 AMB Questionnaire MICHEL-7 Date MICHEL - 7 assessed: 05/13/24 Feeling nervous, anxious, or on edge: 0 = Not at all Not being able to stop or control worryin = Not at all Worrying too much about different things: 0 = Not at all Trouble relaxin = Not at all Being so restless that it is hard to sit still: 0 = Not at all Becoming easily annoyed or irritable: 0 = Not at all Feeling afraid as if something awful might happen: 0 = Not at all Total MICHEL-7 score (0-4 normal; 5-9 mild; 10-14 moderate; 15-21 severe): 0 Source: Developed by Drs. David Eid, Angelique Albert, Ham Myles and colleagues, with an educational wagner from [employer]. MICHEL-7 Assessment Billing MICHEL-7 Assessment Tool: MICHEL-7 Assessment 36197 Review of Systems Const Details: Const Denies chills, Denies fatigue, Denies fever(s), Denies headache(s) and Denies weakness ENT Denies dizziness and Denies headache(s) Card Denies chest pain, Denies lightheadedness, Denies dyspnea and Denies other (Palpitations) Resp Denies cough, Denies dyspnea, Denies wheezing and Denies other ( shortness of breath) GI Denies abdominal pain, Denies melena, Denies hematochezia, Denies change in bowel habits, Denies dyspepsia and Denies nausea Denies hematuria and Denies dysuria Musc Denies abnormal gait, Denies myalgias, Denies arthralgias, Denies numbness and Denies tingling Skin/Breast Denies rash, Denies unusual bruising and Denies wounds Neuro Denies abnormal gait, Denies dizziness, Denies headache(s), Denies memory loss, Denies numbness, Denies Sensory deficit (Neuro), Denies tingling and Denies weakness Psych Denies anxiety, Denies depression, Denies memory loss Endo Denies cold intolerance, Denies fatigue, Denies heat intolerance, Denies polydipsia and Denies polyuria Aller/Immun Denies wheezing Physical exam (Primary Care) Vital Signs: Last Vital Signs Pulse 87 05/13/24 13:18 BP 118/80 05/13/24 13:18 Pulse Ox 97 05/13/24 13:18 Oxygen Delivery Method Room Air 05/13/24 13:18 BMI result Body Mass Index 31.1 Tobacco/Smoking Status: Tobacco use Status Tobacco use date assessed 05/13/24 05/13/24 13:24 Patient Tobacco Use Status Never used Tobacco 05/13/24 13:24 e-Cigarette/Vaping Use Never Used 05/13/24 13:24 PHQ-9: PHQ-9 Score PHQ-9: Total score 0 05/13/24 13:24 Depression Screening Interpretation: Negative Thrive Assessment: Date of Thrive Assessment Date Thrive assessed 05/13/24 05/13/24 13:24 Currently or been in a relationship where the following occur: No concerns reported Const Other: General: no acute distress and well developed Nutritional Appearance: well nourished Orientation/consciousness: patient oriented x3 HENMT Head: Yes normocephalic and Yes atraumatic Eyes General: appearance normal, both eyes and all related structures Pupils: Equal, round and reactive pupils present EOM: EOMs intact bilaterally Resp Effort & Inspection: normal respiratory effort Auscultation: clear to auscultation bilaterally Cardio Rate: regular rate Rhythm: regular rhythm Heart sounds: S1 normal heart sound present, S2 normal heart sound present, no gallops, no murmurs and no rubs GI Palpation (GI): No Abdominal aortic bruit present, Soft to palpation, nontender, No hepatosplenomegaly present and No Rebound tenderness present Auscultation: normal bowel sounds General: Yes no CVA tenderness Back/Spine/Pelvis Back: no CVA tenderness Cervical Spine: cervical ROM normal and No Cervical spine tenderness Thoracic/Lumbar Spine: thoraco-lumbar ROM normal, No pain with thoraco-lumbar ROM, No thoracic spinal tenderness and No lumbar spinal tenderness Extrem General: Yes normal to inspection, No edema and No calf tenderness Skin General: warm and dry. Normal skin color. Normal skin turgor Lesions: no lesions Rashes: no rashes Trauma: no lacerations or abrasions Wounds: no wounds Nails: normal Neuro General: patient oriented x3, gait normal and no focal neuro deficit Cranial nerves: Yes Equal, round and reactive pupils present Cognition (Neuro): normal cognition Gait exam (Neuro): Normal gait present Sensory Exam: No Sensory deficit (Neuro) Psych Appearance: grossly normal Affect: normal affect Attitude: cooperative Thought process: Normal thought process present Coding Level of Care Code Tele Est Pt Level 4 (83715) Diagnoses Vitamin D deficiency E55.9 Obesity (BMI 30-39.9) E66.9 Depression, unspecified depression type F32.9 Depression Type: unspecified Attention deficit disorder, unspecified hyperactivity presence F98.8 Hyperactivity presence: unspecified Benign essential hypertension I10 Additional Codes PHQ-9 - 32741 - PHQ-9 Billing: Yes ([id number]) MICHEL-7 Assessment Billing - MICHEL-7 Assessment Tool: MICHEL-7 Assessment 39067 ([id number]) Assessment & Plan Assessment & Plan (1) Vitamin D deficiency: Code(s): E55.9 - Vitamin D deficiency, unspecified Category: Medical Plan: continue cholcalciferol 50 mcg daily (2) Obesity (BMI 30-39.9): Code(s): E66.9 - Obesity, unspecified Category: Medical Plan: Reinforced a low cholesterol diet and to exercise as tolerated. (3) Depression: Code(s): F32.9 - Major depressive disorder, single episode, unspecified Category: Medical Qualifiers: Depression Type: unspecified Qualified Code(s): F32.9 - Major depressive disorder, single episode, unspecified Plan: Continue Fluoxetine 60 mg daily Denies si/hi (4) Attention deficit disorder (ADD): Code(s): F98.8 - Other specified behavioral and emotional disorders with onset usually occurring in childhood and adolescence Category: Medical Qualifiers: Hyperactivity presence: unspecified Qualified Code(s): F98.8 - Other specified behavioral and emotional disorders with onset usually occurring in childhood and adolescence Plan: Continue Concerta as ordered. He understands that he could skip weekends (5) Benign essential hypertension: Code(s): I10 - Essential (primary) hypertension Category: Medical Plan: Blood pressure is within goal in office Continue amlodipine 5 mg daily
== END 2024-05-13 13:35 | disposition home or self-care (01) ==
PROVIDERS: PCP Internal Medicine
DX: E55.9 Vitamin D deficiency, unspecified (principal); E66.9 Obesity, unspecified; F32.9 Major depressive disorder, single episode, unspecified; I10 Essential (primary) hypertension; F98.8 Other specified behavioral and emotional disorders with onset usually occurring in childhood and adolescence; Z68.31 Body mass index [BMI] 31.0-31.9, adult

== ENCOUNTER → 2024-05-13 13:15 | Outpatient (BNVA) | payer OTHER, SELFPAY | PROVIDERS: PCP Internal Medicine | DX: E55.9 Vitamin D deficiency, unspecified (principal); E66.9 Obesity, unspecified; Z68.31 Body mass index [BMI] 31.0-31.9, adult; F32.9 Major depressive disorder, single episode, unspecified; F98.8 Other specified behavioral and emotional disorders with onset usually occurring in childhood and adolescence; I10 Essential (primary) hypertension; Z79.899 Other long term (current) drug therapy | CPT/HCPCS: 96127 ==

== ENCOUNTER 2024-12-22 14:07 | Outpatient (AMB) | payer OTHER, SELFPAY ==
--- NOTE | 2024-12-22 14:19 | MHC.PC.OV ---
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: No Accompanied by: Self / Same As Patient Allergies No Known Allergies Allergy (Verified 12/22/24 14:54) Medication List - Last Reconciled 12/22/24 by TATUM Arteaga amlodipine 5 mg PO DAILY 90 days cholecalciferol (vitamin D3) 50 mcg PO DAILY 90 days fluoxetine 60 mg (3 x 20 mg) PO DAILY 90 days methylphenidate HCl CD 50 mg PO DAILY 30 days Tobacco use date assessed: 12/22/24 Dental Screening Dental Screen Date: 12/22/24 Did you have a dental visit in the last 12 months?: Yes Did you have a dental problem in the last 6 months where you did not have access to dental care?: No Was dental information given to patient?: Patient has dentist HPI ADD HPI Details The patient is a 39-year-old male with significant past medical history of benign essential hypertension, ADD, depression, obesity and elevated LFTs He is presenting for follow up appointment Reports that he is feeling good no issues today His blood pressure is slightly elevated patient reports that he came straight from work and was rushing to make this appointment Denies shortness of breath, chest pain, heart palpitation or dizziness Denies abdominal pain or change in bowel habits Denies urinary symptoms PFSH Medical History Vitamin D deficiency Overweight (BMI 25.0-29.9) Elevated LFTs Obesity (BMI 30-39.9) Mild obstructive sleep apnea Depression Attention deficit disorder (ADD) Benign essential hypertension Surgical History No significant past surgical history Family History Father Diabetes mellitus Hypertension Social History Housing: House Alcohol intake: current Alcohol intake frequency: a few times a week Alcohol type: beer Patient Tobacco Use Status: Never used Tobacco e-Cigarette/Vaping Use: Never Used Second Hand Smoke Exposure: No service: No Current occupational status: employed 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 1. Little interest or pleasure in doing things: not at all 2. Feeling down, depressed, or hopeless: not at all 3. Trouble falling or staying asleep, or sleeping too much: not at all 4. Feeling tired or having little energy: several days 5. Poor appetite or overeating: not at all 6. Feeling bad about yourself - or that you are a failure or have let yourself or your family down: not at all 7. Trouble concentrating on things, such as reading the newspaper or watching television: several days 8. Moving or speaking so slowly that other people could have noticed. Or the opposite - being so fidgety or restless that you have been moving around a lot more than usual: not at all 9. Thoughts that you would be better off or of hurting yourself in some way: not at all Total score: 2 Depression Screening Interpretation: Negative Depression Screening Done: Yes 05911 - PHQ-9 Billing: Yes Source: Developed by Drs. David Eid, Angelique Albert, Ham Myles and colleagues, with an educational wagner from [employer]. Thrive Questionnaire Date Thrive assessed: 12/22/24 I am a: Patient What is your living situation today?: I have a steady place to live Within the past 12 months, did the food you bought not last and you didn't have the money to get more?: Never true Within the past 12 months, did you worry whether your food would run out before you got money to buy more?: Never true Do you have trouble paying for medicines?: No Do you have trouble getting transportation to medical appointments?: No Do you have trouble paying your heating and electricity bill?: No Do you have trouble taking care of your child, family member or friend?: No Do you have trouble with day-to-day activities such as bathing, preparing meals, shopping, managing finances, etc.?: No Are you currently unemployed and looking for a job?: No Are you interested in more education?: No Please select the resources that you would like help with: None Currently or been in a relationship where the following occur: No concerns reported THRIVE Score: 0 AUDIT C Alcohol Use Questionnaire (AUDIT-C) 1. How often do you have a drink containing alcohol?: 2-3 times a week 2. How many drinks containing alcohol do you have on a typical day when you are drinking?: 3 or 4 3. How often do you have six or more drinks on one occasion?: Monthly Total Score: 6 MICHEL-7 AMB Questionnaire MICHEL-7 Date MICHEL - 7 assessed: 12/22/24 Feeling nervous, anxious, or on edge: 1 = Several days Not being able to stop or control worryin = Not at all Worrying too much about different things: 0 = Not at all Trouble relaxin = Several days Being so restless that it is hard to sit still: 0 = Not at all Becoming easily annoyed or irritable: 1 = Several days Feeling afraid as if something awful might happen: 0 = Not at all Total MCIHEL-7 score (0-4 normal; 5-9 mild; 10-14 moderate; 15-21 severe): 3 Source: Developed by Drs. David Eid, Angelique Albert, Ham Myles and colleagues, with an educational wagner from [employer]. MICHEL-7 Assessment Billing MICHEL-7 Assessment Tool: MICHEL-7 Assessment 18338 Review of Systems Const Denies body aches, Denies chills, Denies fever(s), Denies headache(s) and Denies poor appetite Eyes Reports no additional complaints ENT Denies dysphagia, Denies dizziness, Denies headache(s) and Denies odynophagia Card Denies chest pain, Denies syncope, Denies edema, Denies irregular heart rhythm, Denies lightheadedness and Denies dyspnea Resp Denies cough and Denies dyspnea GI Denies abdominal pain, Denies constipation, Denies dysphagia, Denies diarrhea, Denies nausea, Denies odynophagia and Denies vomiting Reports no additional complaints Musc Reports no additional complaints and Denies abnormal gait Skin/Breast Reports system reviewed and no additional complaints, except as documented Neuro Denies abnormal gait, Denies dizziness, Denies syncope and Denies headache(s) Psych Reports no additional complaints Physical exam (Primary Care) Vital Signs: Last Vital Signs Temp 97.3 F 12/22/24 14:20 Pulse 73 12/22/24 14:20 Resp 18 12/22/24 14:20 BP 148/72 H 12/22/24 14:20 Pulse Ox 97 12/22/24 14:20 Oxygen Delivery Method Room Air 12/22/24 14:20 BMI result Body Mass Index 30.7 Tobacco/Smoking Status: Tobacco use Status Tobacco use date assessed 12/22/24 12/22/24 14:25 Patient Tobacco Use Status Never used Tobacco 12/22/24 14:25 e-Cigarette/Vaping Use Never Used 12/22/24 14:25 PHQ-9: PHQ-9 Score PHQ-9: Total score 2 12/22/24 15:03 Depression Screening Interpretation: Negative Thrive Assessment: Date of Thrive Assessment Date Thrive assessed 12/22/24 12/22/24 14:25 Currently or been in a relationship where the following occur: No concerns reported Const General: cooperative, healthy appearing, comfortable and no acute distress Orientation/consciousness: patient oriented x3 HENMT Head: Yes normocephalic Ears: hearing grossly normal bilaterally General nose exam: Normal external nose present Eyes General: appearance normal, both eyes and all related structures Conjunctivae: conjunctivae normal Neck Neck: Yes full ROM and Yes no lymphadenopathy Resp Effort & Inspection: normal respiratory effort Auscultation: clear to auscultation bilaterally, no crackles, no rales, no rhonchi and no wheezes Cardio Rate: regular rate Rhythm: regular rhythm Skin General skin exam: no rashes or lesions noted Neuro General: patient oriented x3 Gait exam (Neuro): Normal gait present Extrem General: Yes normal to inspection, Yes full ROM and No edema Psych Affect: normal affect Attitude: cooperative Insight: Good insight present (Psych) Judgement: Good judgement present (Psych) Coding Level of Care Code Est Pt Level 3 (01719) Diagnoses Attention deficit disorder, unspecified hyperactivity presence F98.8 Hyperactivity presence: unspecified Depression, unspecified depression type F32.9 Depression Type: unspecified Benign essential hypertension I10 Obesity (BMI 30-39.9) E66.9 Vitamin D deficiency E55.9 Elevated LFTs R79.89 Elevated LDL cholesterol level E78.00 Additional Codes MICHEL-7 Assessment Billing - MICHEL-7 Assessment Tool: MICHEL-7 Assessment 02458 ([id number]) PHQ-9 - 93875 - PHQ-9 Billing: Yes ([id number]) Time Spent (min) 36 Assessment & Plan Assessment & Plan (1) Attention deficit disorder (ADD): Code(s): F98.8 - Other specified behavioral and emotional disorders with onset usually occurring in childhood and adolescence Category: Medical Qualifiers: Hyperactivity presence: unspecified Qualified Code(s): F98.8 - Other specified behavioral and emotional disorders with onset usually occurring in childhood and adolescence Plan: Continue Concerta as ordered. He understands that he could skip weekends (2) Depression: Code(s): F32.9 - Major depressive disorder, single episode, unspecified Category: Medical Qualifiers: Depression Type: unspecified Qualified Code(s): F32.9 - Major depressive disorder, single episode, unspecified Plan: Continue Fluoxetine 60 mg daily Denies si/hi (3) Benign essential hypertension: Code(s): I10 - Essential (primary) hypertension Category: Medical Plan: Blood pressure is above goal-reports rushing to make this appointment Reinforced low-salt diet Continue amlodipine 5 mg daily (4) Obesity (BMI 30-39.9): Code(s): E66.9 - Obesity, unspecified Category: Medical Plan: Reinforced a low cholesterol diet and to exercise as tolerated. (5) Vitamin D deficiency: Code(s): E55.9 - Vitamin D deficiency, unspecified Category: Medical Plan: continue cholcalciferol 50 mcg daily (6) Elevated LFTs: Code(s): R79.89 - Other specified abnormal findings of blood chemistry Category: Medical Plan: Patient last labs was in May of 2023 his ALT was 43 decrease some from 65 We will recheck CMP in six-month (7) Elevated LDL cholesterol level: Code(s): E78.00 - Pure hypercholesterolemia, unspecified Category: Medical Plan: LDL 118 on 06/07/2023. Discussed lifestyle modification and activity as tolerated We will repeat lipid panel in 6 months Orders: Orders Comprehensive [place]. Panel Fast 6 Months F98.8 - Other specified behavioral and emotional disorders with onset usually occurring in childhood and adolescence, I10 - Essential (primary) hypertension, E66.9 - Obesity, unspecified, E66.3 - Overweight, E55.9 - Vitamin D deficiency, unspecified, R79.89 - Other specified abnormal findings of blood chemistry Lipid Panel 6 Months F98.8 - Other specified behavioral and emotional disorders with onset usually occurring in childhood and adolescence, I10 - Essential (primary) hypertension, E66.9 - Obesity, unspecified, E66.3 - Overweight, E55.9 - Vitamin D deficiency, unspecified, R79.89 - Other specified abnormal findings of blood chemistry Vitamin D 25-OH Total 6 Months F98.8 - Other specified behavioral and emotional disorders with onset usually occurring in childhood and adolescence, I10 - Essential (primary) hypertension, E66.9 - Obesity, unspecified, E66.3 - Overweight, E55.9 - Vitamin D deficiency, unspecified, R79.89 - Other specified abnormal findings of blood chemistry Complete Blood Count Auto Diff 6 Months F98.8 - Other specified behavioral and emotional disorders with onset usually occurring in childhood and adolescence, I10 - Essential (primary) hypertension, E66.9 - Obesity, unspecified, E66.3 - Overweight, E55.9 - Vitamin D deficiency, unspecified, R79.89 - Other specified abnormal findings of blood chemistry UA CC w/rflx Micro + Cult 6 Months F98.8 - Other specified behavioral and emotional disorders with onset usually occurring in childhood and adolescence, I10 - Essential (primary) hypertension, E66.9 - Obesity, unspecified, E66.3 - Overweight, E55.9 - Vitamin D deficiency, unspecified, R79.89 - Other specified abnormal findings of blood chemistry TSH reflex Free T4 6 Months F98.8 - Other specified behavioral and emotional disorders with onset usually occurring in childhood and adolescence, I10 - Essential (primary) hypertension, E66.9 - Obesity, unspecified, E66.3 - Overweight, E55.9 - Vitamin D deficiency, unspecified, R79.89 - Other specified abnormal findings of blood chemistry
[2024-12-22 14:20] VITALS: BP 148/72; PULSE 73; RESP 18; TEMP 36.3; O2SAT 97; BMI 30.7
--- OUTSIDE RECORDS SUMMARY | 2024-12-22 14:47 | XMS_ITS | Encounter Summary ---
Author Organization [facility] Address [address] [place] [id number] Phone Care Team Providers Care Manager Warehouse Name Role Phone Karthik Trejo MD Primary Care Provider [phone] Encounter Details Date Type Department Care Team (Late st Contact Info) Description 01/16/2020 Procedure Pass [facility], Ct Scan - [address] [address] Social History Tobacco Use Types Packs/Day Years Used Date Smoking Tobacco: Never Smokeless Tobacco: Never Alcohol Use Standard Drinks/Week Comments Yes 0 (1 standard drink = 0.6 oz pur e alcohol) Sex and Gender Information Value Date Recorded Sex Assigned at Male 01/16/2020 10:14 AM EDT Legal Sex Male 9:34 AM EDT Gender Identity Male 01/16/2020 10:14 AM EDT Sexual Orientation Straight 01/16/2020 10 :14 AM EDT documented as of this encounter Plan of Treatment Not on file documented as of this encounter Visit Diagnoses Not on filedocumented in this encounter Care Teams Manager Warehouse Relationship Specialty Start Date End Date Karthik Trejo MD [address] [place] [address] [place] [address] PCP - General Internal Medicine 01/16/20 documented as of this encounter Additional Source Comments The information contained in this document represents components of the legal health record. It is not the complete legal health record.[facility]
== END 2024-12-22 14:58 | disposition home or self-care (01) ==
LOC: HO.HMCH 14:08
PROVIDERS: PCP Internal Medicine
DX: I10 Essential (primary) hypertension (principal); F98.8 Other specified behavioral and emotional disorders with onset usually occurring in childhood and adolescence; E66.9 Obesity, unspecified; Z68.30 Body mass index [BMI] 30.0-30.9, adult; F32.9 Major depressive disorder, single episode, unspecified; E55.9 Vitamin D deficiency, unspecified; R79.89 Other specified abnormal findings of blood chemistry; E78.00 Pure hypercholesterolemia, unspecified

== ENCOUNTER → 2024-12-22 14:07 | Outpatient (BNVA) | payer OTHER, SELFPAY | PROVIDERS: PCP Internal Medicine | DX: I10 Essential (primary) hypertension (principal); F98.8 Other specified behavioral and emotional disorders with onset usually occurring in childhood and adolescence; F32.9 Major depressive disorder, single episode, unspecified; E55.9 Vitamin D deficiency, unspecified; R79.89 Other specified abnormal findings of blood chemistry; E78.00 Pure hypercholesterolemia, unspecified; E66.9 Obesity, unspecified; Z68.30 Body mass index [BMI] 30.0-30.9, adult | CPT/HCPCS: 96127 ==